=== PATIENT | female | born 1990 | race Caucasian/White ===

== ENCOUNTER 2017-08-14 12:08 | Observation (INO) | payer OTHER ==
--- NOTE | 2017-08-14 12:32 | ED PDOC ---
HPI: Abdomen Time Seen by Provider: 08/14/17 12:25 Chief Complaint (Nursing): Abdominal Pain Chief Complaint (Provider): abdominal pain History Per: Patient Additional Complaint(s): 26-year-old female with history of gastritis presents to emergency department with worsening epigastric pain, nausea, vomiting and diarrhea that started last night. Patient admits to drinking alcohol yesterday and she thinks this triggered her gastritis symptoms. Patient is supposed to be taking Protonix and Reglan but she has been noncompliant with her medications. She denies any fever or chills. Past Medical History Reviewed: Historical Data, Nursing Documentation, Vital Signs Vital Signs: Last Vital Signs Temp 97.4 F L 08/14/17 12:11 Pulse 100 H 08/14/17 19:50 Resp 16 08/14/17 19:50 BP 128/75 08/14/17 19:50 Pulse Ox 98 08/14/17 19:50 - Medical History PMH: Gastritis - Surgical History Surgical History: Endoscopy - Family History Family History: States: No Known Family Hx - Living Arrangements Living Arrangements: With Family - Social History Current smoker - smoking cessation education provided: Yes (occasionally) Alcohol: Social Drugs: Cannabis - Allergies Allergies/Adverse Reactions: Allergies Allergy/AdvReac Type Severity Reaction Status Date / Time No Known Allergies Allergy Verified 08/14/17 12:11 Review of Systems ROS Statement: Except As Marked, All Systems Reviewed And Found Negative Constitutional: Negative for: Fever, Chills Cardiovascular: Negative for: Chest Pain Respiratory: Negative for: Cough Gastrointestinal: Positive for: Nausea, Vomiting, Abdominal Pain, Diarrhea Physical Exam - Reviewed Nursing Documentation Reviewed: Yes Vital Signs Reviewed: Yes - Physical Exam Appears: Positive for: Well, Non-toxic, No Acute Distress Skin: Negative for: Rash Eye Exam: Positive for: Normal appearance Cardiovascular/Chest: Positive for: Regular Rate, Rhythm Respiratory: Positive for: Normal Breath Sounds Gastrointestinal/Abdominal: Positive for: Soft, Tenderness (mild to epigastric region). Negative for: Distended, Guarding, Rebound Extremity: Positive for: Normal ROM Neurologic/Psych: Positive for: Alert, Oriented - Laboratory Results Result Diagrams: 08/14/17 13:35 08/14/17 13:35 Urine POC: Negative Urine dip results: Positive for: Ketones. Negative for: Leukocyte Esterase, Blood, Nitrate, Glucose, Bilirubin, Protein - ECG O2 Sat by Pulse Oximetry: 100 Pulse Ox Interpretation: Normal - Other Rad Abd US X-Ray: Read By Radiologist X-Ray Interpretation: no acute finding CT abd and pelvis with IV contrast X-Ray: Read By Radiologist X-Ray Interpretation: ruptured right ovarian cyst, no other finding Medical Decision Making Medical Decision Makin-year-old female with flare up of gastritis Plan: CBC CMP Lipase Abd US test Urine dip IVF PO protonix PO maalox PO pepcid PO tylenol IV toradol 2:20 pm: Patient vomited about 30 minutes after receiving oral medications. Additional 4 mg IV Zofran given, ultrasound still pending. 4:00 pm: Patient aware of ultrasound results. She states she does not feel any better after meds given. She states she vomited again after second dose of Zofran. CT abdomen and pelvis with IV contrast will be ordered along with 25 mg IV Phenergan and 2 mg IV morphine. 6:30 pm: patient is aware of CT results, all questions answered. Patient states nausea slightly better but she would like additional dose of antinausea medication before trying to drink something. Patient also still complaining of abdominal pain, additional 2 mg IV morphine given. Disposition - Clinical Impression Clinical Impression: Gastritis - Patient ED Disposition Is Patient to be Admitted: Transfer of Care Counseled Patient/Family Regarding: Studies Performed, Diagnosis, Need For Followup, Rx Given - Disposition Referrals: Edgar Be MD [Staff Provider] - Disposition: Transfer of Care Disposition Time: 20:12 Condition: STABLE Forms: [employer] (Greenlandic) Patient Signed Over To: Emiliano Amaya Handoff Comments: Signed out pending PO challenge and final disposition Results - Lab Results Lab Results: 08/14/17 08/14/17 08/14/17 14:07 13:35 13:35 WBC 7.9 RBC 4.59 Hgb 13.3 Hct 40.3 MCV 87.7 MCH 28.9 MCHC 32.9 L RDW 13.9 Plt Count 261 MPV 7.6 Neut % (Auto) 81.2 H Lymph % (Auto) 11.7 L [place] % (Auto) 6.2 Eos % (Auto) 0.3 Baso % (Auto) 0.6 Neut # 6.4 Lymph # 0.9 L Bent # 0.5 Eos # 0.0 Baso # 0.0 Sodium 141 Potassium 3.8 Chloride 106 Carbon Dioxide 19 L Anion Gap 20 BUN 11 Creatinine 0.7 Est GFR ( Amer) > 60 Est GFR (Non-Af Amer) > 60 Random Glucose 92 Calcium 9.3 Total Bilirubin 1.4 H AST 27 ALT 28 Alkaline Phosphatase 45 Total Protein 8.7 H Albumin 4.7 Globulin 4.0 H Albumin/Globulin Ratio 1.2 Lipase 40 Alcohol, Quantitative < 10
[2017-08-14] MEDS ORDERED: Alum-Mag Hydrox-Simethicone Susp (30 mL) PO STA (12:54)
[2017-08-14] MEDS ORDERED: Sodium Chloride 0.9% 1,000 ML IV STA ×2 (12:54→16:01)
[2017-08-14] MEDS ORDERED: Pantoprazole 40 mg EC Tab PO STA (12:54)
[2017-08-14] MEDS ORDERED: Alum-Mag Hydrox-Simethicone Susp (30 mL) ONE (13:03)
[2017-08-14] MEDS ORDERED: Pantoprazole 40 mg EC Tab PO ONE (13:30)
[2017-08-14 13:45] LABS: BASO % 0.6 % (0.0-2.0); EOS % 0.3 % (0.0-4.0); HEMOGLOBIN 13.3 g/dL (12.0-16.0); LYMPH # 0.9 K/uL (1.0-4.3); LYMPH % 11.7 % (20.0-40.0); MEAN CELL VOLUME 87.7 fl (81.0-99.0); MEAN CORPUSCULAR HEMOGLOBIN 28.9 pg (27.0-31.0); MEAN CORPUSCULAR HGB CONC 32.9 g/dL (33.0-37.0); MEAN PLATELET VOLUME 7.6 fl (7.2-11.7); MONO # 0.5 K/uL (0.0-0.8); MONO % 6.2 % (0.0-10.0); NEUT # 6.4 K/uL (1.8-7.0); NEUT % 81.2 % (50.0-75.0); NRBC % 0.1 % (0.0-0.0); RBC 4.59 Mil/uL (3.80-5.20); RED CELL DISTRIBUTION WIDTH 13.9 % (11.5-14.5); WHITE BLOOD COUNT 7.9 K/uL (4.8-10.8)
[2017-08-14 13:54] LABS: ALB/GLOB RATIO 1.2 (1.0-2.1); ALBUMIN 4.7 g/dL (3.5-5.0); ALT/SGPT 28 U/L (9-52); AST/SGOT 27 U/L (14-36); BLOOD UREA NITROGEN 11 mg/dl (7-17); CALCIUM 9.3 mg/dL (8.4-10.2); GFR AFRICAN-AMERICAN > 60; GFR NON-AFRICAN AMERICAN > 60; LIPASE 40 U/L (23-300)
--- NOTE | 2017-08-14 15:22 | US ---
HISTORY: upper abd pain, vomiting COMPARISON: None. TECHNIQUE: Sonographic evaluation of the right upper quadrant of the abdomen. FINDINGS: LIVER: Measures 16.7 cm in length. Normal echogenicity of the liver parenchyma. No mass. No intrahepatic bile duct dilatation. GALLBLADDER: Unremarkable. No gallstones. COMMON BILE DUCT: Measures 4 mm. No stones. No dilatation. PANCREAS: Unremarkable as visualized. No mass. No ductal dilatation. RIGHT KIDNEY: Measures 10.4 cm in length. Normal echogenicity. No calculus, mass, or hydronephrosis. AORTA: No aneurysmal dilatation. IVC: Unremarkable. OTHER FINDINGS: None . IMPRESSION: Unremarkable abdominal ultrasound examination. No evidence of cholelithiasis or cholecystitis.
[2017-08-14] MEDS ORDERED: Iohexol 300 100 ML IJ ONE (16:17)
[2017-08-14] MEDS ORDERED: Sodium Chloride 0.9% 50 ML IV ONE (16:17)
[2017-08-14] MEDS ORDERED: Morphine 4 MG/ML VIAL ONE ×2 (16:19→19:31)
--- NOTE | 2017-08-14 18:21 | CT ---
PROCEDURE: CT Abdomen and Pelvis with contrast HISTORY: abdominal pain, vomiting COMPARISON: None. TECHNIQUE: Contrast dose: 90 mL Omnipaque 300 Radiation dose: Total exam DLP = 858.89 mGy-cm. This CT exam was performed using one or more of the following dose reduction techniques: Automated exposure control, adjustment of the mA and/or kV according to patient size, and/or use of iterative reconstruction technique. FINDINGS: LOWER THORAX: Unremarkable. LIVER: Unremarkable. No gross lesion or ductal dilatation. GALLBLADDER AND BILE DUCTS: Unremarkable. PANCREAS: Unremarkable. No gross lesion or ductal dilatation. SPLEEN: Unremarkable. ADRENALS: Unremarkable. No mass. KIDNEYS AND URETERS: Unremarkable. No hydronephrosis. No solid mass. VASCULATURE: Unremarkable. No aortic aneurysm. BOWEL: Unremarkable. No obstruction. No gross mural thickening. APPENDIX: Normal appendix. PERITONEUM: Trace fluid in cul-de-sac. LYMPH NODES: Unremarkable. No enlarged lymph nodes. BLADDER: Unremarkable. REPRODUCTIVE: Irregular peripherally enhancing right ovarian cyst consistent with ruptured or involuting cyst, 2.2 cm diameter. BONES: No acute fracture. OTHER FINDINGS: None. IMPRESSION: Ruptured/involuting right ovarian cyst, 2.2 cm. Trace fluid in cul-de-sac. Otherwise unremarkable examination peer
--- NOTE | 2017-08-14 20:20 | ED PDOC ---
- Laboratory Results Result Diagrams: 08/14/17 13:35 08/14/17 13:35 Urine POC: Negative - ECG O2 Sat by Pulse Oximetry: 100 - Progress ED Course And Treament: 1999 Signed out to me pending PO challenge 2100 Pt. reports no relief in nausea. Further reports that she had an endoscopy/colonoscopy done 2 months ago due to the same symptoms and was normal. 2131 Pt. vomited once more while in ED. Pt. states she does not feel comfortable going home still feeling nauseous. Reports no pain. Medical Decision Making Medical Decision Making: Pt. received 2 doses of zofran and 2 doses of promethazine without resolution of nausea or vomiting therefore she will be kept for 23 hr observation. Disposition - Clinical Impression Clinical Impression: Gastritis, Intractable vomiting - POA Present On Arrival: None - Disposition Disposition: Hospitalized as Observation Patient Disposition Time: 22:29 Condition: GUARDED
[2017-08-15] MEDS: Dextrose 5%/0.45% NS 1,000 ML IV SCH ×2 (00:26→09:15)
[2017-08-15 07:05] LABS: HEMOGLOBIN 11.9 g/dL (12.0-16.0); MEAN CELL VOLUME 88.1 fl (81.0-99.0); MEAN CORPUSCULAR HEMOGLOBIN 28.7 pg (27.0-31.0); MEAN CORPUSCULAR HGB CONC 32.6 g/dL (33.0-37.0); RBC 4.15 Mil/uL (3.80-5.20); RED CELL DISTRIBUTION WIDTH 13.8 % (11.5-14.5); WHITE BLOOD COUNT 6.7 K/uL (4.8-10.8)
[2017-08-15 07:26] LABS: BLOOD UREA NITROGEN 11 mg/dl (7-17); CALCIUM 8.9 mg/dL (8.4-10.2); GFR AFRICAN-AMERICAN > 60; GFR NON-AFRICAN AMERICAN > 60
[2017-08-15 07:51] VITALS: BP 99/50; PULSE 77; RESP 18; TEMP 99.1; O2SAT 98
--- NOTE | 2017-08-15 11:05 | CP.PCM.DIS ---
Provider - Provider Date of Admission: 08/14/17 22:24 Attending physician: Niko Proctor MD Time Spent in preparation of Discharge (in minutes): 30 Diagnosis - Discharge Diagnosis (1) Gastritis Status: Acute (2) Intractable vomiting Status: Acute Hospital Course - Lab Results Lab Results: Most Recent Lab Values WBC 6.7 K/uL (4.8-10.8) 08/15/17 05:30 RBC 4.15 Mil/uL (3.80-5.20) 08/15/17 05:30 Hgb 11.9 g/dL (12.0-16.0) L 08/15/17 05:30 Hct 36.5 % (34.0-47.0) 08/15/17 05:30 MCV 88.1 fl (81.0-99.0) 08/15/17 05:30 MCH 28.7 pg (27.0-31.0) 08/15/17 05:30 MCHC 32.6 g/dL (33.0-37.0) L 08/15/17 05:30 RDW 13.8 % (11.5-14.5) 08/15/17 05:30 Plt Count 234 K/uL (130-400) 08/15/17 05:30 MPV 7.6 fl (7.2-11.7) 08/14/17 13:35 Neut % (Auto) 81.2 % (50.0-75.0) H 08/14/17 13:35 Lymph % (Auto) 11.7 % (20.0-40.0) L 08/14/17 13:35 [place] % (Auto) 6.2 % (0.0-10.0) 08/14/17 13:35 Eos % (Auto) 0.3 % (0.0-4.0) 08/14/17 13:35 Baso % (Auto) 0.6 % (0.0-2.0) 08/14/17 13:35 Neut # 6.4 K/uL (1.8-7.0) 08/14/17 13:35 Lymph # 0.9 K/uL (1.0-4.3) L 08/14/17 13:35 [place] # 0.5 K/uL (0.0-0.8) 08/14/17 13:35 Eos # 0.0 K/uL (0.0-0.7) 08/14/17 13:35 Baso # 0.0 K/uL (0.0-0.2) 08/14/17 13:35 Sodium 139 mmol/l (132-148) 08/15/17 05:30 Potassium 3.7 MMOL/L (3.6-5.0) 08/15/17 05:30 Chloride 105 mmol/L (98-107) 08/15/17 05:30 Carbon Dioxide 23 mmol/L (22-30) 08/15/17 05:30 Anion Gap 15 (10-20) 08/15/17 05:30 BUN 11 mg/dl (7-17) 08/15/17 05:30 Creatinine 0.7 mg/dl (0.7-1.2) 08/15/17 05:30 Est GFR ( Amer) > 60 08/15/17 05:30 Est GFR (Non-Af Amer) > 60 08/15/17 05:30 Random Glucose 112 mg/dL (65-105) H 08/15/17 05:30 Calcium 8.9 mg/dL (8.4-10.2) 08/15/17 05:30 Total Bilirubin 1.4 mg/dl (0.2-1.3) H 08/14/17 13:35 AST 27 U/L (14-36) 08/14/17 13:35 ALT 28 U/L (9-52) 08/14/17 13:35 Alkaline Phosphatase 45 U/L (38-126) 08/14/17 13:35 Total Protein 8.7 G/DL (6.3-8.2) H 08/14/17 13:35 Albumin 4.7 g/dL (3.5-5.0) 08/14/17 13:35 Globulin 4.0 gm/dL (2.2-3.9) H 08/14/17 13:35 Albumin/Globulin Ratio 1.2 (1.0-2.1) 08/14/17 13:35 Lipase 40 U/L (23-300) 08/14/17 13:35 Alcohol, Quantitative < 10 mg/dl (0-10) 08/14/17 14:07 - Hospital Course Hospital Course: clinically improved Discharge Exam - Head Exam Head Exam: ATRAUMATIC, NORMAL INSPECTION, NORMOCEPHALIC - Eye Exam Eye Exam: EOMI, Normal appearance, PERRL Pupil Exam: NORMAL ACCOMODATION, PERRL - GI/Abdominal Exam GI & Abdominal Exam: Normal Bowel Sounds - Rectal Exam Rectal Exam: NORMAL INSPECTION - Neurological Exam Neurological exam: Alert, CN II-XII Intact, Normal Gait, Oriented x3, Reflexes Normal - Psychiatric Exam Psychiatric exam: Normal Affect, Normal Mood - Skin Skin Exam: Dry, Intact, Normal Color, Warm Discharge Plan - Follow Up Plan Condition: GUARDED Disposition: HOME/ ROUTINE Patient education suggested?: Yes Additional Instructions: follow up with primary care physician
--- NOTE | 2017-08-15 22:05 | HP ---
HISTORY OF PRESENT ILLNESS: Ms. Momin is a 26-year-old female who was admitted via the emergency room because of intractable vomiting. She also had an episode of diarrhea the night of admission. She indicates that she had drank some alcohol 24 hours prior to presentation and began vomiting after that. She has had similar episodes in the past. PAST MEDICAL HISTORY: Remarkable for gastritis. FAMILY HISTORY: Unremarkable. SOCIAL HISTORY: She drinks alcohol occasionally and does not use drugs and does not smoke. Presently, lives in [place] because she was working. PHYSICAL EXAMINATION GENERAL: The patient is alert and oriented. VITAL SIGNS: Blood pressure 128/75, pulse of 100, respiratory rate is 18. She is febrile. O2 saturation 98% on room air. SKIN: Shows fair turgor. HEENT: Pupils equal, reactive to light and accommodation. Mouth shows fair hygiene. LUNGS: Clear. HEART: Regular. No murmurs or gallop. ABDOMEN: Soft with mild midepigastric tenderness; otherwise, unremarkable. CENTRAL NERVOUS SYSTEM: Exam grossly intact. DATA: Ultrasound of the abdomen is essentially unremarkable. Ultrasound of the abdomen and pelvis is remarkable for ruptured right ovarian cyst with trace fluid in the cul-de-sac; otherwise, unremarkable. WBC 6.7, hemoglobin 11.9, platelet count 234,000. Sodium 139, potassium 3.7, BUN of 11, creatinine 0.7, serum glucose 112, serum lipase 40. IMPRESSION: Intractable vomiting, probably secondary to acute gastritis. CT scan finding of ruptured ovarian cyst. PLAN: Zofran, Protonix. The patient to be discharged today after diet is advanced. She will follow up with her primary care physician in [place]. Niko Proctor MD
== END 2017-08-15 13:46 | disposition home or self-care (01) ==
LOC: H.ER 12:08 → H.ERHOLD 22:24 → H.MEDSURG1 23:59
PROVIDERS: ADMIT Internal Medicine Pulmonary Disease; ATTEND Internal Medicine Pulmonary Disease
DX: K29.00 Acute gastritis without bleeding (principal); N83.291 Other ovarian cyst, right side; Z91.14 Patient's other noncompliance with medication regimen; F17.200 Nicotine dependence, unspecified, uncomplicated
CPT/HCPCS: 36415; 74177; 76705; 80048; 80053; 80320; 81025; 83690; 85025; 85027; 96360; 99285; G0378; J1170; J1885; J2270; J2405; J2550; J7040; J7042; Q9967

== ENCOUNTER 2018-12-14 15:07 | Observation (INO) | payer OTHER ==
[2018-12-14] MEDS ORDERED: Sodium Chloride 0.9% 1,000 ML IV STA (15:27)
--- NOTE | 2018-12-14 15:33 | ED PDOC ---
HPI: Abdomen Time Seen by Provider: 12/14/18 15:20 Chief Complaint (Nursing): Abdominal Pain Chief Complaint (Provider): Abdominal Pain History Per: Patient History/Exam Limitations: no limitations Onset/Duration Of Symptoms: Hrs (x1) Current Symptoms Are (Timing): Still Present Additional Complaint(s): Patient is a 28 y/o female with a PMHx of gastritis who presents to the ED for evaluation of epigastric abdominal pain associated with nausea and vomiting for one hour prior to arrival. Patient reports no blood in vomitous. Patient denies fever and diarrhea. PCP: None Past Medical History Reviewed: Historical Data, Nursing Documentation, Vital Signs Vital Signs: Last Vital Signs Temp 97.8 F 12/14/18 15:18 Pulse 101 H 12/14/18 15:18 Resp 16 12/14/18 15:18 BP 125/78 12/14/18 15:18 Pulse Ox 100 12/14/18 15:18 Primary Care Provider: FAMILY PROVIDER,NO - Medical History PMH: Gastritis Denies: HIV, Chronic Kidney Disease - Surgical History Surgical History: Endoscopy - Family History Family History: States: No Known Family Hx - Immunization History Hx Tetanus Toxoid Vaccination: No Hx Influenza Vaccination: Yes (Apr 2017) Hx Pneumococcal Vaccination: No - Home Medications Home Medications: Ambulatory Orders Medication Instructions Recorded Omeprazole 40 mg PO DAILY #20 capsule. 08/15/17 Ondansetron [Zofran] 4 mg PO Q6 #30 tab 08/15/17 - Allergies Allergies/Adverse Reactions: Allergies Allergy/AdvReac Type Severity Reaction Status Date / Time No Known Allergies Allergy Verified 12/14/18 15:19 Review of Systems ROS Statement: Except As Marked, All Systems Reviewed And Found Negative Constitutional: Negative for: Fever Gastrointestinal: Positive for: Nausea, Vomiting (non-bloody), Abdominal Pain (epigastric). Negative for: Diarrhea Physical Exam - Reviewed Nursing Documentation Reviewed: Yes Vital Signs Reviewed: Yes - Physical Exam Appears: Positive for: In Acute Distress (patient is actively vomiting and retching) Head Exam: Positive for: ATRAUMATIC, NORMAL INSPECTION, NORMOCEPHALIC Skin: Positive for: Normal Color, Warm, DRY Eye Exam: Positive for: EOMI, Normal appearance, PERRL Neck: Positive for: Normal, Painless ROM, Supple Cardiovascular/Chest: Positive for: Regular Rate, Rhythm. Negative for: Murmur Respiratory: Positive for: Normal Breath Sounds. Negative for: Respiratory Distress Gastrointestinal/Abdominal: Positive for: Soft, Tenderness (epigastric) Back: Positive for: Normal Inspection. Negative for: L CVA Tenderness, R CVA Tenderness Extremity: Positive for: Normal ROM. Negative for: Pedal Edema, Deformity Neurological/Psych: Positive for: Alert, Oriented (x3) - Laboratory Results Result Diagrams: 12/14/18 17:00 12/14/18 15:44 - ECG O2 Sat by Pulse Oximetry: 100 (RA) Pulse Ox Interpretation: Normal - Progress Re-evaluation Time: 18:11 Condition: Re-examined (Continues to have vomiting despite multiple doses of antiemetics and pain meds. CT and labs unremarkable. Will place in obs for IV hydration and try capsaicin) Medical Decision Making Medical Decision Making: Time:1527 Plan: Given history of gastritis will obtain - CMP Lipase Urine Urine Dipstick CBC Morphine 2 mg IVP IV Fluids Pepcid 20 mg IVP Zofran 4 mg IVP Scribe Attestation: Documented by Mir Denton, acting as a scribe for Pierce Myles MD Provider Scribe Attestation: All medical record entries made by the Scribe were at my direction and personally dictated by me. I have reviewed the chart and agree that the record accurately reflects my personal performance of the history, physical exam, medical decision making, and the department course for this patient. I have also personally directed, reviewed, and agree with the discharge instructions and disposition. Disposition - Clinical Impression Clinical Impression: Intractable vomiting - Patient ED Disposition Is Patient to be Admitted: Yes - Disposition Disposition Time: 18:15 Condition: FAIR Forms: [employer] ([place]ovan) - Pt Status Changed To: Hospital Disposition Of: Observation - POA Present On Arrival: None
[2018-12-14 16:12] LABS: ALB/GLOB RATIO 1.1 (1.0-2.1); ALBUMIN 4.6 g/dL (3.5-5.0); BLOOD UREA NITROGEN 13 mg/dl (7-17); CALCIUM 8.8 mg/dL (8.4-10.2); GFR NON-AFRICAN AMERICAN > 60; LIPASE 56 U/L (23-300)
[2018-12-14 16:18] LABS: ALT/SGPT 20 U/L (9-52); AST/SGOT 30 U/L (14-36)
[2018-12-14] MEDS ORDERED: Sodium Chloride 0.9% 50 ML IV ONE (17:09)
[2018-12-14] MEDS ORDERED: Iohexol 300 100 ML IJ ONE (17:09)
[2018-12-14 17:51] LABS: BASO % 0.6 % (0.0-2.0); EOS # 0.1 K/uL (0.0-0.7); EOS % 1.1 % (0.0-4.0); HEMOGLOBIN 13.8 g/dL (12.0-16.0); LYMPH # 2.5 K/uL (1.0-4.3); LYMPH % 29.3 % (20.0-40.0); MEAN CELL VOLUME 89.5 fl (81.0-99.0); MEAN CORPUSCULAR HEMOGLOBIN 29.9 pg (27.0-31.0); MEAN CORPUSCULAR HGB CONC 33.4 g/dL (33.0-37.0); MEAN PLATELET VOLUME 7.7 fl (7.2-11.7); MONO # 0.8 K/uL (0.0-0.8); MONO % 9.7 % (0.0-10.0); NEUT # 5.1 K/uL (1.8-7.0); NEUT % 59.3 % (50.0-75.0); NRBC % 0.2 % (0.0-0.0); RBC 4.6 Mil/uL (3.80-5.20); RED CELL DISTRIBUTION WIDTH 14.1 % (11.5-14.5); WHITE BLOOD COUNT 8.6 K/uL (4.8-10.8)
--- NOTE | 2018-12-14 18:07 | CT ---
Date of service: 12/14/2018 PROCEDURE: CT Abdomen and Pelvis with contrast HISTORY: Abd pain COMPARISON: CT abdomen and pelvis with IV contrast performed 08/14/17 TECHNIQUE: Contrast dose: 90 mL Omnipaque 300 IV Radiation dose: Total exam DLP = 668.85 mGy-cm. This CT exam was performed using one or more of the following dose reduction techniques: Automated exposure control, adjustment of the mA and/or kV according to patient size, and/or use of iterative reconstruction technique. FINDINGS: LOWER THORAX: No visible consolidation, pleural effusion, or pneumothorax. Small hiatal hernia. LIVER: Unremarkable. GALLBLADDER AND BILE DUCTS: Unremarkable. PANCREAS: Unremarkable. SPLEEN: Unremarkable. ADRENALS: Unremarkable. KIDNEYS AND URETERS: The kidneys enhance symmetrically. No hydronephrosis or obstructing calculus identified. VASCULATURE: No aortic aneurysm. No atherosclerotic calcification or mural plaque present. BOWEL: Stomach is nondistended. Lack of oral contrast limits evaluation for bowel pathology. Bowel loops appear within normal limits of caliber without evidence of obstruction. Nonspecific fluid filled ileum; correlate clinically for enteritis. APPENDIX: The appendix appears within normal limits of caliber. No secondary signs of acute appendicitis. PERITONEUM: Small pelvic free fluid. No definite free air. LYMPH NODES: Prominent sub cm nonspecific mesenteric lymph nodes. BLADDER: Unremarkable. REPRODUCTIVE: Uterus is present. Probable bilateral ovarian cysts. BONES: No acute osseous abnormality is detected. OTHER FINDINGS: None. IMPRESSION: Nonspecific nondilated fluid-filled ileum; correlate clinically for enteritis/ileitis. Small pelvic free fluid. Probable bilateral ovarian cysts; recommend correlation with ultrasound. Prominent sub cm nonspecific mesenteric lymph nodes. Small hiatal hernia.
[2018-12-14 19:18] LABS: BARBITURATES, UR NEGATIVE (NEGATIVE); BENZODIAZEPINES, UR NEGATIVE (NEGATIVE); OPIATES, UR NEGATIVE (NEGATIVE); PHENCYCLIDINE, UR NEGATIVE (NEGATIVE)
[2018-12-14] MEDS: Dextrose 5%/Lactated Ringer's 1,000 ML IV SCH (22:43)
[2018-12-15] MEDS: Dextrose 5%/Lactated Ringer's 1,000 ML IV SCH ×2 (09:25→18:43)
--- NOTE | 2018-12-15 23:37 | CP.PCM.HP ---
History of Present Illness - History of Present Illness History of Present Illness: This is a 28 y/o female admitted for few episodes of vomiting. Past Patient History - Past Medical History & Family History Past Medical History?: Yes - Past Social History Smoking Status: Current Some Days Smoker - CARDIAC Hx Cardiac Disorders: No - PULMONARY Hx Respiratory Disorders: No - NEUROLOGICAL Hx Neurological Disorder: No - HEENT Hx HEENT Problems: No - RENAL Hx Chronic Kidney Disease: No - ENDOCRINE/METABOLIC Hx Endocrine Disorders: No - HEMATOLOGICAL/ONCOLOGICAL Hx Blood Disorders: No Hx AIDS: No Hx Human Immunodeficiency Virus (HIV): No - INTEGUMENTARY Hx Dermatological Problems: No - MUSCULOSKELETAL/RHEUMATOLOGICAL Hx Musculoskeletal Disorders: No Hx Falls: No - GASTROINTESTINAL Hx Gastrointestinal Disorders: Yes Hx Gastritis: Yes - GENITOURINARY/GYNECOLOGICAL Hx Genitourinary Disorders: No - PSYCHIATRIC Hx Psychophysiologic Disorder: Yes Hx Substance Use: Yes (currently uses marijuana) - SURGICAL HISTORY Hx Surgeries: No Other/Comment: hx of endoscopy, can not remember what year - ANESTHESIA Hx Anesthesia: Yes Hx Anesthesia Reactions: No Hx Malignant Hyperthermia: No Meds Allergies/Adverse Reactions: Allergies Allergy/AdvReac Type Severity Reaction Status Date / Time No Known Allergies Allergy Verified 12/14/18 15:19 Results - Vital Signs Recent Vital Signs: Last Vital Signs Temp 98.8 F 12/15/18 16:39 Pulse 75 12/15/18 16:39 Resp 20 12/15/18 16:39 BP 124/85 12/15/18 16:39 Pulse Ox 99 12/15/18 16:39 - Labs Result Diagrams: 12/14/18 17:00 12/14/18 15:44
[2018-12-16] MEDS: Sucralfate 1 gm/10 ml Oral Susp UD PO SCH ×4 (07:07→16:23)
[2018-12-16] MEDS ORDERED: Alum-Mag Hydrox-Simethicone Susp (30 mL) PO ONE (08:48)
[2018-12-16] MEDS ORDERED: Dextrose 5%/Lactated Ringer's 1,000 ML IV SCH (10:00)
[2018-12-16 11:20] LABS: HEMOGLOBIN 13.2 g/dL (12.0-16.0); MEAN CELL VOLUME 87.8 fl (81.0-99.0); MEAN CORPUSCULAR HEMOGLOBIN 29.3 pg (27.0-31.0); MEAN CORPUSCULAR HGB CONC 33.4 g/dL (33.0-37.0); RBC 4.52 Mil/uL (3.80-5.20); RED CELL DISTRIBUTION WIDTH 13.3 % (11.5-14.5); WHITE BLOOD COUNT 9.5 K/uL (4.8-10.8)
[2018-12-16 11:42] LABS: ALB/GLOB RATIO 1.2 (1.0-2.1); ALBUMIN 4.5 g/dL (3.5-5.0); ALT/SGPT 24 U/L (9-52); AST/SGOT 30 U/L (14-36); BLOOD UREA NITROGEN 10 mg/dl (7-17); GFR NON-AFRICAN AMERICAN > 60
[2018-12-16] MEDS ORDERED: Potassium Chloride 40 MEQ in Dextrose 5%/Lactated Ringer's 1,000 ML IV SCH (14:27)
--- NOTE | 2018-12-16 15:09 | CP.PCM.CON ---
History of Present Illness - History of Present Illness History of Present Illness: 28 yo admitted for abdominal pain is referred for pain management. Patient asks explicitly for Dilaudid IV, stating that she had gotten it at a hospital in [place]. Usually she receives her care from a GI specialist in [place], [place]. As an outpatient she doesn't take any pain medications. Since admission, Morphine 2mg IV and Toradol 30mg IV haven't been working. She complains of being in pain for 13 hours and wants to sign out. She's been seen by GI specialist. CT abdomen showed enteritis. Past Patient History - Past Medical History & Family History Past Medical History?: Yes - Past Social History Smoking Status: Current Some Days Smoker - CARDIAC Hx Cardiac Disorders: No - PULMONARY Hx Respiratory Disorders: No - NEUROLOGICAL Hx Neurological Disorder: No - HEENT Hx HEENT Problems: No - RENAL Hx Chronic Kidney Disease: No - ENDOCRINE/METABOLIC Hx Endocrine Disorders: No - HEMATOLOGICAL/ONCOLOGICAL Hx Blood Disorders: No Hx AIDS: No Hx Human Immunodeficiency Virus (HIV): No - INTEGUMENTARY Hx Dermatological Problems: No - MUSCULOSKELETAL/RHEUMATOLOGICAL Hx Musculoskeletal Disorders: No Hx Falls: No - GASTROINTESTINAL Hx Gastrointestinal Disorders: Yes Hx Gastritis: Yes - GENITOURINARY/GYNECOLOGICAL Hx Genitourinary Disorders: No - PSYCHIATRIC Hx Psychophysiologic Disorder: Yes Hx Substance Use: Yes (currently uses marijuana) - SURGICAL HISTORY Hx Surgeries: No Other/Comment: hx of endoscopy, can not remember what year - ANESTHESIA Hx Anesthesia: Yes Hx Anesthesia Reactions: No Hx Malignant Hyperthermia: No Meds Home Medications: Home Medication List Medication Instructions Recorded Confirmed Type Pantoprazole Sodium [Protonix] 40 mg PO DAILY #30 ect 12/16/18 Rx Allergies/Adverse Reactions: Allergies Allergy/AdvReac Type Severity Reaction Status Date / Time No Known Allergies Allergy Verified 12/14/18 15:19 - Medications Medications: Current Medications Ciprofloxacin (Cipro) 500 mg PO Q12 [facility]; Protocol Last Admin: 12/16/18 09:04 Dose: Not Given Dicyclomine HCl (Bentyl) 10 mg PO 1100,1500,1900,2300 [facility] Last Admin: 12/16/18 12:08 Dose: Not Given Potassium Chloride 40 meq/ (Dextrose/Lactated Ringer's) 1,020 mls @ 100 mls/hr IV .[id number] [facility] Stop: 12/17/18 09:58 Ketorolac Tromethamine (Toradol) 15 mg IVP Q6 PRN PRN Reason: Pain, moderate (4-7) Ketorolac Tromethamine (Toradol) 30 mg IVP Q6 PRN PRN Reason: Pain, severe (8-10) Last Admin: 12/16/18 08:55 Dose: 30 mg Metoclopramide HCl (Reglan) 10 mg IVP Q6 PRN PRN Reason: Nausea/Vomiting Last Admin: 12/16/18 14:50 Dose: 10 mg Metronidazole (Flagyl) 500 mg PO Q8 [facility]; Protocol Last Admin: 12/16/18 09:04 Dose: Not Given Morphine Sulfate (Morphine) 4 mg IVP ONCE ONE Stop: 12/16/18 15:06 Pantoprazole Sodium (Protonix Inj) 40 mg IVP Q12 [facility] Sucralfate (Carafate Oral Susp) 1 gm PO QID [facility] Last Admin: 12/16/18 12:08 Dose: Not Given Physical Exam - GI/Abdominal Exam GI & Abdominal Exam: Soft, Tenderness Results - Vital Signs Recent Vital Signs: Last Vital Signs Temp 98.5 F 12/16/18 07:55 Pulse 72 12/16/18 07:55 Resp 20 12/16/18 07:55 BP 154/82 H 12/16/18 07:55 Pulse Ox 100 12/16/18 07:55 - Labs Result Diagrams: 12/16/18 11:10 12/16/18 11:10 Labs: Laboratory Results - last 24 hr 12/16/18 12/16/18 11:10 11:10 WBC 9.5 RBC 4.52 Hgb 13.2 Hct 39.6 MCV 87.8 MCH 29.3 MCHC 33.4 RDW 13.3 Plt Count 299 Sodium 135 Potassium 3.4 L Chloride 101 Carbon Dioxide 25 Anion Gap 12 BUN 10 Creatinine 0.6 L Est GFR ( Amer) > 60 Est GFR (Non-Af Amer) > 60 Random Glucose 112 H Calcium 9.0 Total Bilirubin 1.0 AST 30 ALT 24 Alkaline Phosphatase 38 Total Protein 8.3 H Albumin 4.5 Globulin 3.8 Albumin/Globulin Ratio 1.2 Assessment & Plan - Assessment and Plan (Free Text) Assessment: 28 yo woman w/ abdominal pain. Work-up thus far is largely benign. She's not a chronic pain patient, but it's suspicious she'd ask for Dilaudid IV explicitly. - Morphine 4mg IV x 1 - f/u GI recommendations - continue Toradol 30mg IV - there is no indication for continuous IV opioids
[2018-12-16 15:49] VITALS: BP 131/84; PULSE 70; RESP 18; TEMP 98.9; O2SAT 99
--- NOTE | 2018-12-17 02:34 | CON ---
DATE: 12/16/2018 REFERRING PHYSICIAN: Octavio Ayala MD REASON FOR CONSULTATION: Nausea, vomiting, and abdominal pain. HISTORY OF PRESENT ILLNESS: This is a 28-year-old female with history of gastritis who comes in for gas pain, discomfort, nausea, and vomiting prior to arrival. She 3 days with the same problem. Had it about a year ago. Only wants Dilaudid and nothing else. The pain is so bad that she can only tolerate Dilaudid IV. Otherwise, lying in bed comfortable, in no apparent distress. PAST MEDICAL HISTORY: As above. PAST SURGICAL HISTORY: As above. MEDICATIONS: Reviewed. REVIEW OF SYSTEMS: All other systems have been reviewed and negative apart from the HPI. PHYSICAL EXAMINATION: VITAL SIGNS: Here in the hospital are grossly unremarkable. GENERAL: A well-nourished pleasant young female, lying in bed comfortable, in no apparent distress. HEENT: Head: Normocephalic and atraumatic. Eyes: Pupils are equally reactive to light bilaterally. No conjunctival pallor or icterus. NECK: Supple. Normal range of motion. No lymphadenopathy appreciated. LUNGS: Coarse breath sounds bilaterally. HEART: S1 and S2. Regular rate and rhythm. No murmurs appreciated. ABDOMEN: Soft and nontender. Bowel sounds present. No rebound. No guarding. EXTREMITIES: Pulses felt bilaterally. SKIN: Warm, dry, and intact. NEUROLOGIC: Alert and oriented x3. LABORATORY DATA: Labs and radiology have been reviewed. CAT scan shows nondilated fluid-filled ileum, possible enteritis or ileitis which is only on IV contrast. Labs are grossly unremarkable with the exception of U-tox is positive for cannabinoids. ASSESSMENT AND PLAN: This is a 28-year-old female with possible enteritis versus cyclic vomiting syndrome. From GI standpoint, Zofran and Reglan, alternating with PPI twice a day. Pain control as needed. We will follow the patient with you. Thank you for the consult. Rainer Ramos MD/ PhD cc: Octavio Ayala MD
== END 2018-12-16 20:09 | disposition home or self-care (01) ==
LOC: H.ER 15:07 → H.ERHOLD 18:14 → H.MEDSURG1 21:10
PROVIDERS: ADMIT Family Medicine; ATTEND Family Medicine
DX: R10.13 Epigastric pain (principal); R11.2 Nausea with vomiting, unspecified; F17.200 Nicotine dependence, unspecified, uncomplicated; K29.70 Gastritis, unspecified, without bleeding; F12.90 Cannabis use, unspecified, uncomplicated
CPT/HCPCS: 36415; 74177; 80053; 80324; 80345; 80346; 80349; 80353; 80358; 80361; 81025; 83690; 83992; 85025; 85027; 96374; 96375; 96376; 99285; C9113; G0378; J1885; J2270; J2405; J2765; J7030; J7120; Q9967